=== PATIENT | female | born 1980 | race African-American/Black ===

== ENCOUNTER 2020-01-20 17:20 | Emergency (ER) | payer SELFPAY ==
[2020-01-20 17:45] LABS: #Basophils 0.1 thou/uL (0.0-0.2); #Lymphocytes 1.5 thou/uL (1.20-3.40); #Monocytes 0.3 thou/uL (0.11-0.59); #Neutrophils 4.9 thou/uL (1.40-6.50); %Basophils 1.2 % (0.0-1.0); %Eosinophils 0.5 % (0.0-10.0); %Lymphocytes 21.3 % (21.0-51.0); %Neutrophils 72.1 % (42.0-75.0); Hemoglobin 15.4 g/dL (12.0-16.0); Mean Corpuscular HGB CONC 31.7 g/dL (32.0-36.0); Mean Corpuscular Hemoglobin 29.5 pg (27.0-31.0); Mean Platelet Volume 6.1 fL (7.4-10.4); Platelet Count 278 thou/uL (130-400); RBC Distribution Width 12.9 % (11.5-14.5); Red Blood Cell (RBC) Count 5.22 mill/uL (4.20-5.40); White Blood Cell (WBC) Count 6.9 thou/uL (4.8-10.8)
[2020-01-20 18:03] LABS: ALT (SGPT) 19 U/L (8-55); AST (SGOT) 19 U/L (5-34); Albumin 4.3 g/dL (3.5-5.0); Alkaline Phosphatase 61 U/L (40-110); Anion Gap 19 mmol/L (10-20); BUN (Urea Nitrogen) 10 mg/dL (7.0-18.7); Bilirubin, Total 0.4 mg/dL (0.2-1.2); Calc. Creatinine Clearance 0 mL/min (70-130); Carbon Dioxide 20 mmol/L (22-29); Chloride 105 mmol/L (98-107); Estimated GFR-MDRD 76; Globulin 2.4 g/dL (2.4-3.5); Glucose 93 mg/dL (70-105); Magnesium 2.1 mg/dL (1.6-2.6); Potassium 3.3 mmol/L (3.5-5.1); Protein, Total 6.7 g/dL (6.0-8.3); Sodium 141 mmol/L (136-145)
[2020-01-20 18:11] LABS: Bilirubin Negative (Negative); Blood, Urine Large (Negative); Glucose, Urine (Dipstick) Negative (Negative); Leukocyte Negative (Negative); Nitrite Negative (Negative); Protein, Urine (Dipstick) 100 mg/dL (Neg-Trace); Urobilinogen 0.2 mg/dL (Less than 2)
[2020-01-20 18:12] LABS: Clarity Cloudy (Clear); Pregnancy Test - Urine (BHCG) Negative (Negative); Pregu Control Background? CLEAR/WHITE (CLR/WHITE); Pregu Control Bar Appear? YES (CONTROL BAR); Specific Gravity 1.013 (1.002-1.036)
[2020-01-20 18:13] LABS: RBC/HPF Greater than 50 HPF (0-3)
[2020-01-20 18:16] LABS: Bacteria/HPF Rare-Few HPF (None Seen); Trichomonas/HPF 2+ HPF (None Seen); WBC/HPF 0-3 HPF (0-3)
[2020-01-20 18:17] LABS: Amphetamine Not Detected (NotDetected); Barbiturates Screen Not Detected (NotDetected); Benzodiazepine Screen Not Detected (NotDetected); Cocaine Metabolite Screen Not Detected (NotDetected); Medtox Control Line Valid? VALID (VALID); Methadone Not Detected (NotDetected); Methamphetamine Not Detected (NotDetected); Opiate Screen Not Detected (NotDetected); Oxycodone Screen Not Detected (NotDetected); Phencyclidine (PCP) Not Detected (NotDetected); THC/Cannabinoid Screen Not Detected (NotDetected); Tricyclic Screen Not Detected (NotDetected)
--- NOTE | 2020-01-20 18:24 | CT ---
Head CT without contrast 01/20/2020: Comparison: None HISTORY: New onset seizure TECHNIQUE: Axial CT imaging at 5 mm intervals from vertex through skull base without contrast FINDINGS: The visualized paranasal sinuses/mastoid air cells are well aerated. No displaced calvarial fracture, intracranial hemorrhage, midline shift, or mass effect. If there is clinical concern for a seizure focus, follow-up brain MRI advised. IMPRESSION: No acute findings.
--- NOTE | 2020-01-20 18:40 | RAD ---
Portable frontal chest radiograph: 01/20/2020 COMPARISON: None HISTORY: Hypoxia following a seizure FINDINGS: There is reticulonodular opacity/groundglass opacity within the perihilar regions and bilat eral upper lobes, left greater than right. No pneumothorax or pleural fluid. Heart and mediastinal contours appear grossly unremarkable. No focal consolidation. IMPRESSION: Reticulonodular/groundglass opacity bilaterally, left greater than right. Findings sugges t atypical infectious pneumonitis or the sequela of aspiration. Short-term follow-up imaging of the chest following treatment advised to document resolution.
== END 2020-01-20 20:15 | disposition short-term general hospital (02) ==
LOC: MADERS 17:20 → EDSEX 17:20 → MADERS 20:15
DX: R56.9 Unspecified convulsions (principal); J69.0 Pneumonitis due to inhalation of food and vomit; J45.909 Unspecified asthma, uncomplicated; F17.210 Nicotine dependence, cigarettes, uncomplicated
CPT/HCPCS: 70450; 71045; 80053; 80306; 81003; 81015; 81025; 83735; 84443; 85025